=== PATIENT | female | born 1980 | race African-American/Black ===

== ENCOUNTER 2022-12-19 23:40 | Emergency (ER) | payer SELFPAY ==
[2022-12-20 00:43] LABS: APPEARANCE,URINE CLOUDY; BILIRUBIN,URINE NEGATIVE (NEGATIVE); COLOR,URINE RED; GLUCOSE,URINE NEGATIVE (NEGATIVE); KETONES,URINE NEGATIVE (NEGATIVE); LEUKOCYTE ESTERASE,URINE SMALL (NEGATIVE); NITRITE,URINE NEGATIVE (NEGATIVE); OCCULT BLOOD,URINE LARGE (NEGATIVE); PROTEIN,URINE 100 mg/dL (NEGATIVE); UROBILINOGEN,URINE 0.2 EU/dL (<2.0)
[2022-12-20 00:46] LABS: EPITHELIAL CELLS,URINE FEW (NONE-FEW); RBC,URINE TOO NUMEROUS TO CT (0-2/HPF); WBC,URINE 20-25 (0-5/HPF)
[2022-12-20 00:47] LABS: BACTERIA,URINE FEW (NEGATIVE)
[2022-12-20] MEDS ORDERED: Sulfamethoxazole/Trimethoprim 800-160 MG Tab PO ONE (00:51)
== END 2022-12-20 01:00 | disposition home or self-care (01) ==
LOC: MW.ED 23:40
DX: N39.0 Urinary tract infection, site not specified (principal); Z88.8 Allergy status to other drugs, medicaments and biological substances
CPT/HCPCS: 81001; 81025; 99283; A9270